=== PATIENT | female | born 1965 | race Caucasian/White ===

== ENCOUNTER → 2019-06-05 17:00 | Outpatient (CLI) | payer BC, SELFPAY ==
[2019-06-06 11:33] LABS: Campylobacter Not Detected (NotDetected); Clostridium Difficile A/B, PCR Not Detected (NotDetected); Cryptosporidium Not Detected (NotDetected); Enteroaggregative E coli Not Detected (NotDetected); Enteropathogenic E coli Not Detected (NotDetected); Enterotoxigenic E coli Not Detected (NotDetected); Plesimonas Shigalloides, PCR Not Detected (NotDetected); Salmonella, PCR Not Detected (NotDetected); Shiga-like toxin E coli Not Detected (NotDetected); Shigella Enterovasive E coli Not Detected (NotDetected); Vibrio Cholerae Not Detected (NotDetected); Vibrio, PCR Not Detected (NotDetected); Yersinia Entercolitica, PCR Not Detected (NotDetected)
[2019-06-06 11:34] LABS: Adenovirus F 40/41, stool Not Detected (NotDetected); Astrovirus Not Detected (NotDetected); Cyclospora Cayetanesis Not Detected (NotDetected); Entamoeba histolytica Not Detected (NotDetected); Giardia lamblia Not Detected (NotDetected); Norovirus Not Detected (NotDetected); Rotavirus A Not Detected (NotDetected); Sapovirus Not Detected (NotDetected)
== END ==
PROVIDERS: Visit Provider Physician Assistant
DX: K52.9 Noninfective gastroenteritis and colitis, unspecified (principal)
CPT/HCPCS: 87507

== ENCOUNTER → 2020-03-17 15:34 | Outpatient (CLI) | payer BC, SELFPAY ==
--- NOTE | 2020-03-17 15:36 | MM_ITS ---
PROCEDURE: MM DIG SCREENING MAMM BI W/CAD Referring Doctor: Prudence Hilliard Patient Age:54Y CLINICAL INDICATION: SCREENING no hormones, no new complaints.. Outside studies from [place] Family history: Sister with breast cancer age 53; maternal aunt and paternal cousin with breast cancer as well COMPARISON: [facility] MA MAMMOGRAM ROUTINE SCREENING BILAT from 09/04/2010 [facility] MA-MAMMO SCREENING DIG W/ CAD BILATERAL from 12/11/2012 [facility] MA-MAMMO SCREENING DIG W/ CAD BILATERAL from 01/29/2014 [facility] MA-MAMMO SCREENING DIG W/ CAD BILATERAL from 03/03/2015 TECHNIQUE: Standard CC and MLO images were obtained. R2 CAD reviewed. Bilateral digital breast tomosynthesis included. FINDINGS: Prior studies have finally arrive from [facility] and are helpful moderate breast density. No suspicious new mass; no suspicious calcifications Left breast- There is tiny 4 mm nodular density CC view at medial of breast I believe was likely present 2015 outside CC view but is slightly more apparent today. It more clearly seen on the tomosynthesis CC view, but not readily apparent on the MLO tomosynthesis.. Favor tiny benign likely stable feature and believe a follow-up follow-up 6 months would be simplest and most optimal way to confirm stability of this likely insignificant density . New dense benign calcification is noted at the superior left breast noted and not of concern Right breast but no new areas of concern. Longstanding stable asymmetric area of fibroglandular density at the medial right breast but this dissipates on the tomosynthesis views as well and not of significant concern but follow-up in 1 year adequate here IMPRESSION: Left breast: Small 4 mm nodular density medial breast on CC view I believe was vaguely present before but more evident today. Likely but stable small benign feature but in order to confirm stability would suggest a follow-up left mammogram 6-7 months Right breast: No new areas of concern. Follow-up 1 year BI-RAD Category: 3 Probably Benign Finding Short Term Follow-up FOLLOW-UP: 6M-7 month Follow-up left breast mammogram (A letter has been sent to the patient regarding results of the study.) Dictated by: Raj Zhang MD 03/30/2020 11:57 Raj Zhang MD in [place] 03/30/2020 11:57
== END ==
PROVIDERS: PCP Nurse Practitioner; Visit Provider Nurse Practitioner
DX: Z12.31 Encounter for screening mammogram for malignant neoplasm of breast (principal)
CPT/HCPCS: 77063; 77067

== ENCOUNTER → 2020-10-10 12:43 | Outpatient (CLI) | payer BC, SELFPAY ==
--- NOTE | 2020-10-10 12:50 | MM_ITS ---
PROCEDURE: MM DIG MAMM DX UNILAT LT CAD Digital Breast Tomosynthesis Included CLINICAL INDICATION: ABN MAMM Follow-up abnormal mammogram, six-month follow-up COMPARISON: MG MA-MAMMO SCREENING DIG W/ CAD BILATERAL from 01/29/2014 MG MA-MAMMO SCREENING DIG W/ CAD BILATERAL from 03/03/2015 MG MM DIG SCREENING MAMM BI W/CAD from 03/17/2020 TECHNIQUE: Standard images performed along with spot compression views. Left breast ultrasound is pending. FINDINGS: There is average fibroglandular tissue. There is a questionable small area of asymmetry in the upper inner aspect of the left breast. This appears to compress out on the focal spot compression view. Small 4 mm nodular area in the medial aspect of the left breast is unchanged. No new abnormalities apparent. Ultrasound the left breast is recommended but could not be performed on the same day. IMPRESSION: Questionable asymmetric density upper inner left breast. Stable probably benign nodule medial aspect of the left breast. Ultrasound suggested. BI-RAD Category: 0 Need Additional Imaging Evaluation FOLLOW-UP: IMM Immediate Follow-up Recommended with ultrasound (A letter has been sent to the patient regarding results of the study.) Dictated by: Francesco Becerra MD 10/11/2020 08:13 Francesco Becerra MD in [place] 10/11/2020 08:13
== END ==
PROVIDERS: PCP Nurse Practitioner; Visit Provider Nurse Practitioner
DX: R92.8 Other abnormal and inconclusive findings on diagnostic imaging of breast (principal)
CPT/HCPCS: 77061; 77065; G0279

== ENCOUNTER → 2020-10-17 09:38 | Outpatient (CLI) | payer BC, SELFPAY ==
--- NOTE | 2020-10-17 09:41 | US_ITS ---
PROCEDURE: US BREAST LT COMPLETE CLINICAL INDICATION: ABN MAMM COMPARISON: MG MM DIG MAMM DX UNILAT LT CAD from 10/10/2020 FINDINGS: Focal anechoic lesion noted at 12 o'clock position near the nipple measuring 0.4 x 0.2 centimeters. Second focal anechoic lesion is noted at 11 o'clock position near or to the nipple measuring 0.3 centimeters. These most likely represents cysts. Left axillary lymph node measuring 1.6 x 1.2 centimeters noted with central fatty hilum and normal morphology. IMPRESSION: Cysts in the left breast. Benign finding. BI-RADS category 2. Return to routine screening is recommended. Dictated by: Bbas Sellers 10/18/2020 08:23 Babs Sellers in [place] 10/18/2020 08:23
== END ==
PROVIDERS: PCP Nurse Practitioner; Visit Provider Nurse Practitioner
DX: R92.8 Other abnormal and inconclusive findings on diagnostic imaging of breast (principal)
CPT/HCPCS: 76641